=== PATIENT | female | born 1975 | race Two or more races ===

== ENCOUNTER 2021-05-05 13:10 | Emergency (ER) | payer OTHER ==
[~2021-05-05] VITALS: Ht 152.4 cm; Wt 95.7 kg
[2021-05-05 13:18] VITALS: BP 143/77
[2021-05-05] MEDS ORDERED: MORPHINE SULFATE INJ 2 MG/ML DISP.SYRIN IM ONE (14:00)
[2021-05-05] MEDS ORDERED: MORPHINE SULFATE INJ 4 MG/ML DISP.SYRIN ONE (14:04)
[2021-05-05] MEDS ORDERED: HYDR-3976 GT (14:52)
--- NOTE | 2021-05-05 15:05 | NUR ---
Patient discharged to home in stable condition. Written and verbal after care instructions given. Patient verbalizes understanding of instruction.
[2021-05-05] MEDS ORDERED: BENZOIN COMPOUND TINCT 60 ML BOTTLE ONE (15:10)
--- NOTE | 2021-05-05 16:06 | NUR ---
splint appllied on right wrist, steri strips applied on laceration.
== END 2021-05-05 16:10 | disposition home or self-care (01) ==
LOC: ER 13:12
DX: S52.571A Other intraarticular fracture of lower end of right radius, initial encounter for closed fracture (principal); S52.691A Other fracture of lower end of right ulna, initial encounter for closed fracture; S61.411A Laceration without foreign body of right hand, initial encounter; V49.49XA Driver injured in collision with other motor vehicles in traffic accident, initial encounter; Y93.89 Activity, other specified; Y92.413 State road as the place of occurrence of the external cause; Y99.8 Other external cause status
CPT/HCPCS: 29125; 73110; 73130; 96372; 99284; A6403; J2270